=== PATIENT | male | born 1960 | race Caucasian/White ===

== ENCOUNTER 2018-07-18 16:00 | Emergency (ER) | payer OTHER, MEDICARE ==
[~2018-07-18] VITALS: Ht 190.5 cm; Wt 158.8 kg
[~2018-07-18 16:00] MED LIST: ALLOPURINOL 10100 M1 PO; AMARYL4 MG PO; CENTRUM SILVER1 EAC2 PO; COLCHICINE 0.60.6 M1; COLCRYS0.6 MG PO; COUMADIN 10MG T10 M1; COUMADIN7.5 MG PO; GLUCOPHAGE1000 MG PO; HYDRALAZINE 2525 M1 PO; INDOMETHACIN 5050 M1; INDOMETHACIN 5050 MG PO; KLOR-CON 1010 MEQ PO; LEVEMIR SUBQ; LISINOPRIL10 MG PO; MAGNESIUM OXID400 M1 PO; MEDROL DOSPAK21 TAB PO; MEDROLDOSEPACK PO; MULTAQ400 MG; NEURONTIN 300300 M1 PO; NORCO 5-325 TA1 EACH PO; NORVASC10 MG PO; NOVOLOG100 UNIT/1 SQ; ORAPRED ODT10 MG; OXYCONTIN10 M1 PO; PERCOCET 5-3251 EACH PO; PRILOSEC 20 MG20 MG PO; SIMVASTATIN40 MG PO; SORINE 80 MG TA80 M1 PO; TOPROL XL100 MG PO; TOPROL XL200 MG PO; VITAMIN D1000 UNI1 PO; ZOFRAN ODT4 MG PO
[2018-07-18] MEDS ORDERED: FLOVENT HFA 4444 MCG INH (16:22)
[2018-07-18] MEDS ORDERED: PROAIR HFA8.5 GM INH (16:23)
[2018-07-18 16:35] LABS: URINE BILIRUBIN NEGATIVE (Negative); URINE BLOOD NEGATIVE (Negative); URINE CLARITY CLEAR; URINE COLOR YELLOW; URINE GLUCOSE-RANDOM NEGATIVE (Negative); URINE KETONES NEGATIVE (Negative); URINE LEUKOCYTES-REFLEX NEGATIVE (Negative); URINE NITRITE-REFLEX NEGATIVE (Negative); URINE PROTEIN NEGATIVE (Negative); URINE UROBILINOGEN 0.2 E.U./dl (0.2-1.0)
[2018-07-18] MEDS ORDERED: NORCO 5-325 TA1 EAC1 PO (16:57)
[2018-07-18] MEDS ORDERED: ROBAXIN500 MG PO (16:57)
[2018-07-18 17:00] VITALS: BP 138/87
== END 2018-07-18 17:00 | disposition home or self-care (01) ==
LOC: M.ERS 16:00
PROVIDERS: Nurse Practitioner Family
DX: S39.012A Strain of muscle, fascia and tendon of lower back, initial encounter (principal); M10.9 Gout, unspecified; E11.9 Type 2 diabetes mellitus without complications; I48.91 Unspecified atrial fibrillation; E78.5 Hyperlipidemia, unspecified; J45.909 Unspecified asthma, uncomplicated; Z79.4 Long term (current) use of insulin; W01.0XXA Fall on same level from slipping, tripping and stumbling without subsequent striking against object, initial encounter; Y93.89 Activity, other specified; Y92.89 Other specified places as the place of occurrence of the external cause; Y99.8 Other external cause status

== ENCOUNTER 2019-02-08 21:51 | Emergency (ER) | payer OTHER, MEDICARE ==
[~2019-02-08] VITALS: Ht 190.5 cm; Wt 165.6 kg
[~2019-02-08 21:51] MED LIST changes: +COLCHICINE0.6 MG PO; +FLOVENT HFA 4444 MCG INH; +NORCO 10-325 T1 EACH PO; +NORCO 5-325 TA1 EAC1 PO; +PROAIR HFA8.5 GM INH; +ROBAXIN500 MG PO
[2019-02-08] MEDS ORDERED: MS CONTIN 30 MG30 MG PO (22:03)
[2019-02-08] MEDS ORDERED: OXYCODONE HCL10 MG PO (22:03)
[2019-02-08] MEDS ORDERED: FLEXERIL PO (22:36)
[2019-02-08] MEDS ORDERED: LIDODERM1 EACH TOP (22:36)
[2019-02-08 22:51] VITALS: BP 154/85
== END 2019-02-08 22:51 | disposition home or self-care (01) ==
LOC: M.ERS 21:51
DX: S16.1XXA Strain of muscle, fascia and tendon at neck level, initial encounter (principal); M10.9 Gout, unspecified; E11.9 Type 2 diabetes mellitus without complications; I48.91 Unspecified atrial fibrillation; E78.5 Hyperlipidemia, unspecified; I10 Essential (primary) hypertension; J45.909 Unspecified asthma, uncomplicated; Z90.49 Acquired absence of other specified parts of digestive tract; X58.XXXA Exposure to other specified factors, initial encounter; Y93.89 Activity, other specified; Y92.89 Other specified places as the place of occurrence of the external cause; Y99.8 Other external cause status

== ENCOUNTER 2019-04-04 12:06 | Emergency (ER) | payer OTHER, MEDICARE ==
[~2019-04-04] VITALS: Ht 190.5 cm; Wt 165.6 kg
[~2019-04-04 12:06] MED LIST changes: +FLEXERIL PO; +LIDODERM1 EACH TOP; +MS CONTIN 30 MG30 MG PO; +OXYCODONE HCL10 MG PO
[2019-04-04] MEDS ORDERED: VITAMIN B-12100 MC1 PO (12:15)
[2019-04-04] MEDS ORDERED: MEDROLDOSEPACK PO (13:58)
[2019-04-04 14:19] VITALS: BP 145/76
== END 2019-04-04 14:19 | disposition home or self-care (01) ==
LOC: M.ERS 12:06
DX: S39.012A Strain of muscle, fascia and tendon of lower back, initial encounter (principal); G89.29 Other chronic pain; M10.9 Gout, unspecified; E11.9 Type 2 diabetes mellitus without complications; I48.91 Unspecified atrial fibrillation; I10 Essential (primary) hypertension; E78.5 Hyperlipidemia, unspecified; J45.909 Unspecified asthma, uncomplicated; Z90.49 Acquired absence of other specified parts of digestive tract; Z98.52 Vasectomy status; X50.0XXA Overexertion from strenuous movement or load, initial encounter; Y92.89 Other specified places as the place of occurrence of the external cause; Y93.89 Activity, other specified; Y99.8 Other external cause status